=== PATIENT | female | born 1975 | race American Indian/Alaskan Native ===

== ENCOUNTER 2024-09-17 22:03 | Emergency (ER) | payer OTHER ==
[~2024-09-17] VITALS: Ht 162.6 cm; Wt 82.6 kg
[2024-09-17 22:53] LABS: EOSINOPHILS 2.6 % (0-6); HEMATOCRIT 31.1 % (35.0-50.0); HEMOGLOBIN 10.4 g/dL (12.0-18.0); LYMPHOCYTES 28.2 % (24-44); MCH 25.4 (27-36); MCHC 33.5 g/dl (30-36); MCV 75.6 fl (81-99); MONOCYTES 6.9 % (0-12); NEUTROPHILS 61.3 % (39-80); PLATELET COUNT 293 K/uL (140-440); RBC 4.11 M/ul (4.3-5.7); RDW 19.5 (10.5-15.0)
[2024-09-17 23:07] LABS: ALBUMIN 3.3 g/dL (3.4-5.0); ALBUMIN/GLOBULIN RATIO 0.87 (1.1-2.4); ANION GAP 9.5 (7-21); BILIRUBIN, TOTAL 0.8 mg/dL (0.2-1.0); BUN/CREATININE RATIO 10.93 (6.0-28.6); CALCIUM 8.2 mg/dL (8.5-10.1); CREATININE, SERUM 0.64 mg/dL (0.55-1.02); POTASSIUM 3.5 mmol/L (3.5-5.1); PROTEIN, TOTAL 7.1 g/dL (6.4-8.2)
[2024-09-18 00:23] VITALS: BP 111/70
== END 2024-09-18 00:23 | disposition home or self-care (01) ==
LOC: ED 22:03
PROVIDERS: Emergency Medicine
DX: N85.8 Other specified noninflammatory disorders of uterus (principal)
CPT/HCPCS: 74176; 74177; 80053; 83690; 85025; 99284-25; Q9967